=== PATIENT | male | born 1945 | race Hispanic/Latino ===

== ENCOUNTER → 2017-09-28 | Day surgery (SDC) | payer MEDICARE ==
[~2017-09-28] MED LIST: BALANCED SALT SOLN (OPTH) 15 ML BTL IO ONE; BUPIVACAINE HC 0.75% PF 10ML VIAL INJ ONE; FENTANYL CITRATE/PF 100MCG/2 ML INJ ONE; LEVOTHYROXINE PO; LIDOCAINE 2% /EPINEPHRINE 20 ML SDV INJ ONE; LIDOCAINE HCL 1% 30ML-PF VIAL ONE; MIDAZOLAM HCL 2 MG/2 ML VIAL ONE; NEOMYCIN/POLYMYXIN/DEX (OPTH) 3.5 GM TUBE ONE; POVIDONE IODINE 5% (OPTH) 30 ML BTL ONE
--- NOTE | 2017-10-07 14:35 | Operative Report ---
DATE OF PROCEDURE: September 28, 2017 PREOPERATIVE DIAGNOSIS: Very large nasal pterygium, left eye. POSTOPERATIVE DIAGNOSIS: Very large nasal pterygium, left eye. PROCEDURES 1. Pterygium excision, left eye, nasal. 2. Amniotic membrane graft placement, left eye, nasal. 3. Superficial keratectomy, left eye, nasal. 4. Mitomycin-C 0.25 milligrams per milliliter, left eye, nasal, 60 seconds. ANESTHESIA: MAC. COMPLICATIONS: None. PROCEDURE IN DETAIL: The patient was taken to the operating room, where he received 0.5% tetracaine drops in the eye. The patient was then prepped and draped in the usual sterile ophthalmic way. A lid speculum was placed in the left eye. A 6-0 sterile stay suture was placed at the limbus. The pterygium was localized and carefully removed using 0.12 forceps and Ellyn scissors. Wet-field cautery was used to control any bleeding. This was sent to pathology. A bur was used to perform a superficial keratectomy and remove any residual debris. Mitomycin-C was soaked in a cottonoid and placed at the edge of the conj for 60 seconds. Copious amounts of BSS solution were used to irrigate this off. The graft was cut and measured 10 x 15 mm. It was secured using fibrin and thrombin glue. Excess glue and tissue were removed using 0.12 forceps and Ellyn scissors. The patient had Maxitrol ointment, a patch and Armenta shield placed on the eye. He tolerated the procedure well. The amniotic membrane graft serial number is [id number]. Job#: [id number]
== END | disposition home or self-care (01) ==
LOC: OR 12:06
PROVIDERS: ATTEND Ophthalmology
DX: H11.052 Peripheral pterygium, progressive, left eye (principal); E03.9 Hypothyroidism, unspecified; N40.0 Benign prostatic hyperplasia without lower urinary tract symptoms
CPT/HCPCS: 65426; 88305; J2001; J2250; V2790

== ENCOUNTER 2024-12-26 14:49 | Emergency (ER) | payer MEDICARE ==
[~2024-12-26] VITALS: Ht 172.7 cm; Wt 83.9 kg
[~2024-12-26 14:49] MED LIST changes: -BALANCED SALT SOLN (OPTH) 15 ML BTL IO ONE; -BUPIVACAINE HC 0.75% PF 10ML VIAL INJ ONE; -FENTANYL CITRATE/PF 100MCG/2 ML INJ ONE; -LIDOCAINE 2% /EPINEPHRINE 20 ML SDV INJ ONE; -LIDOCAINE HCL 1% 30ML-PF VIAL ONE; -MIDAZOLAM HCL 2 MG/2 ML VIAL ONE; -NEOMYCIN/POLYMYXIN/DEX (OPTH) 3.5 GM TUBE ONE; -POVIDONE IODINE 5% (OPTH) 30 ML BTL ONE
[2024-12-26 15:00] VITALS: TEMP 97.5
[2024-12-26] MEDS ORDERED: SODIUM CHLORIDE 0.9% 1000ML 1,000 ML ONE (15:34)
[2024-12-26 15:58] LABS: BASOPHILS % 0.2 % (0.0-1.0); HEMOGLOBIN 14.5 g/dL (14.0-18.0); LYMPHOCYTES # (AUTO) 0.9 (1.0-3.2); MEAN CORPUSCULAR HEMOGLOBIN 30.9 pg (28-32); MEAN CORPUSCULAR HGB CONC 34.5 g/dL (31-35); MEAN CORPUSCULAR VOLUME 89.6 fL (81-99); MONOCYTES % 9.3 % (4.4-11.3); NEUTROPHILS # (AUTO) 9.1 (2.1-6.9); PLATELET COUNT 146 x10e3/uL (140-360); RED BLOOD COUNT 4.69 x10e6/uL (4.3-5.7); RED CELL DISTRIBUTION WIDTH 14.4 % (11.7-14.4); WHITE BLOOD COUNT 11.06 x10e3/uL (4.8-10.8)
[2024-12-26 16:12] LABS: ALBUMIN 3.4 g/dL (3.5-5.0); ALBUMIN/GLOBULIN RATIO 1.3 (0.8-2.0); ANION GAP 14.8 mmol/L (8-16); BILIRUBIN,TOTAL 1.1 mg/dL (0.2-1.2); CALCIUM 8.1 mg/dL (8.4-10.2); CREATININE, SERUM 1.2 mg/dL (0.72-1.25); POTASSIUM 3.8 mmol/L (3.5-5.1); TOTAL PROTEIN 6.1 g/dL (6.5-8.1)
[2024-12-26 16:14] LABS: CORONAVIRUS COVID-19 AG NEGATIVE (NEGATIVE); INFLUENZA A AG POSITIVE (NEGATIVE); INFLUENZA B AG NEGATIVE (NEGATIVE)
[2024-12-26] MEDS ORDERED: XOFLUZA80 MG PO (17:19)
[2024-12-26] MEDS ORDERED: AMOX TR-K CLV1 EAC2 PO (17:20)
[2024-12-26] MEDS ORDERED: DOXYCYCLINE HY100 MG PO (17:21)
[2024-12-26 17:57] VITALS: PULSE 65; RESP 16; O2SAT 95
[2024-12-26] MEDS: SODIUM CHLORIDE 0.9% 500ML 500 ML IV STA (18:00)
[2024-12-26] MEDS: SODIUM CHLORIDE 0.9% 1000ML 1,000 ML IV ONE (18:14)
== END 2024-12-26 18:26 | disposition home or self-care (01) ==
LOC: ER 17:17
DX: R10.30 Lower abdominal pain, unspecified (principal); J10.1 Influenza due to other identified influenza virus with other respiratory manifestations; E03.9 Hypothyroidism, unspecified; Z11.52 Encounter for screening for COVID-19; Z85.810 Personal history of malignant neoplasm of tongue
CPT/HCPCS: 36415; 71045; 80053; 85025; 87428; 93005; 99284; J7030; J7040

== ENCOUNTER 2025-08-13 20:20 | Emergency (ER) | payer MEDICARE ==
[~2025-08-13] VITALS: Ht 172.7 cm; Wt 83.9 kg
[~2025-08-13 20:20] MED LIST changes: +AMOX TR-K CLV1 EAC2 PO; +DOXYCYCLINE HY100 MG PO; +XOFLUZA80 MG PO
[2025-08-13 20:34] VITALS: PULSE 61; RESP 20; TEMP 97.6
[2025-08-13] MEDS ORDERED: DOXYCYCLINE HY100 MG PO (21:57)
[2025-08-13] MEDS: TETANUS/DIPHTHERIA TOX ADULT 0.5 ML SYR IM ONE (22:15)
[2025-08-13] MEDS: DOXYCYCLINE HYCLATE TABLET 100 MG TAB PO ONE (22:15)
[2025-08-13 22:25] VITALS: BP 155/77; PULSE 62; RESP 18; O2SAT 99
== END 2025-08-13 22:26 | disposition home or self-care (01) ==
LOC: ER 20:31
DX: S62.522B Displaced fracture of distal phalanx of left thumb, initial encounter for open fracture (principal); W27.0XXA Contact with workbench tool, initial encounter; Y92.89 Other specified places as the place of occurrence of the external cause; E03.9 Hypothyroidism, unspecified; Z85.810 Personal history of malignant neoplasm of tongue
CPT/HCPCS: 90471; 90714; 99284